=== PATIENT | male | born 1925 | race Caucasian/White ===

== ENCOUNTER 2017-01-13 07:30 | Day surgery (SDC) | payer MEDICARE ==
[~2017-01-13] VITALS: Ht 177.8 cm; Wt 60.5 kg
[~2017-01-13 07:30] MED LIST: BACT800T5 PO; CLIN1CAP5 PO; TRAM50 PO; [UNRECOGNIZED DRUG - REMARK] PO
[2017-01-13] MEDS ORDERED: SODIUM CHLOR 0.9% 1000 ML INJ 1,000 ML IV SCH (08:00)
[2017-01-13 08:07] VITALS: BP 152/64; PULSE 56; RESP 18; TEMP 97.1; O2SAT 97
[2017-01-13] MEDS ORDERED: FERR1TAB58 PO (08:17)
[2017-01-13] MEDS ORDERED: OCUVCAP2 PO (08:17)
[2017-01-13] MEDS ORDERED: ASPI1TAB69 PO (08:17)
[2017-01-13] MEDS ORDERED: FURO40TA PO (08:17)
[2017-01-13] MEDS ORDERED: VITA10003 PO (08:17)
[2017-01-13] MEDS ORDERED: OMEP20TA PO (08:17)
[2017-01-13] MEDS ORDERED: BILB500C PO (08:17)
[2017-01-13] MEDS ORDERED: ZINC50TA PO (08:17)
[2017-01-13] MEDS ORDERED: POTA10SO12 PO (08:17)
[2017-01-13] MEDS ORDERED: SIMV40TA PO (08:17)
[2017-01-13] MEDS ORDERED: IOHEXOL 350 MG/ML 100 ML BTL (for Cath Lab) OTHER ONE (08:37)
[2017-01-13] MEDS ORDERED: HEPARIN-NS/PF INJ 500 ML ONE (08:45)
[2017-01-13] MEDS ORDERED: MIDAZOLAM HCL 2 MG/2 ML VIAL ONE ×2 (08:53→09:12)
[2017-01-13] MEDS ORDERED: SODIUM CHLOR 0.9% 250 ML INJ 250 ML IV PRN (09:30)
[2017-01-13] MEDS ORDERED: ATROPINE SULFATE 1 MG/ML VIAL IV PRN (09:30)
[2017-01-13] MEDS ORDERED: MISC INFORMATION XX ONE (09:30)
[2017-01-13] MEDS ORDERED: BACITRACIN OINT 0.9 GM PKT TOP ONE (09:30)
[2017-01-13] MEDS ORDERED: LIDOCAINE HCL 1% 50 ML VIAL INFIL PRN (09:30)
[2017-01-13] MEDS ORDERED: METOCLOPRAMIDE HCL 10 MG/2 ML VIAL IV PRN (09:30)
[2017-01-13] MEDS ORDERED: ONDANSETRON HCL 4 MG/2 ML VIAL IV PRN (09:30)
[2017-01-13] MEDS ORDERED: LORazepam 2 MG/ML VIAL IV PRN (09:30)
--- NOTE | 2017-01-13 11:02 | MA ---
cc: STEWART BENJAMIN MD DATE: 01/13/2017 A 6 sheath was inserted percutaneously into the right femoral artery. Coronary angiography was done with Maria R preformed catheters and ascending aortogram was done with pigtail catheter. RESULTS Aortic pressure was 110/45. CORONARY ARTERIOGRAPHY Left main coronary was normal but very short. Left anterior descending artery demonstrates some mild luminal irregularities with stenosis of approximately 30% in its proximal portion. No other significant stenoses were seen. Left circumflex artery arose from left main and a mild stenosis of approximately 30-35% was present in its midportion. No other significant lesions were seen. Right coronary was anatomically dominant, mild luminal irregularities were noted but no significant stenoses were noted. ASCENDING AORTOGRAM Ascending aortogram demonstrated normal size aorta, +1 aortic insufficiency was seen. Marked calcification of the aortic valve was present as well as mitral annular calcification. CONCLUSION The patient demonstrates no significant coronary disease. The patient will continue his workup for possible TAVR. MD SARIAH NyW/TLL /9:39 AM /10:40 AM
--- NOTE | 2017-01-13 12:22 | EKG ---
Date Performed: 01/13/2017 Time Performed: 08:18:06 PTAGE: 89 years EKG: --- Warning: Data quality may affect interpretation --- Sinus bradycardia with sinus arrhyt hmia. Prolonged QT interval Lateral ST-T changes are nonspecific Borderline ECG NO PREVIOUS TRACING DOCTOR: Nishant Gibbs Interpretating Date/Time 01/13/2017 12:20:27
== END 2017-01-13 14:18 | disposition home or self-care (01) ==
LOC: HCAT 07:30 → HDIC 07:31 → HCAT 14:18
PROVIDERS: ATTEND Internal Medicine Cardiovascular Disease
DX: I35.0 Nonrheumatic aortic (valve) stenosis (principal); I70.0 Atherosclerosis of aorta; I50.9 Heart failure, unspecified; E78.5 Hyperlipidemia, unspecified
CPT/HCPCS: 93005; 93454; 93567; C1769; C1893; J1644; J2250; J3010; Q9967

== ENCOUNTER 2017-03-01 09:54 | Emergency (ER) | payer MEDICARE ==
[~2017-03-01] VITALS: Ht 167.6 cm; Wt 59.0 kg
[~2017-03-01 09:54] MED LIST changes: +ASPI1TAB69 PO; -BACT800T5 PO; +BILB500C PO; -CLIN1CAP5 PO; +FERR1TAB58 PO; +FURO40TA PO; +OCUVCAP2 PO; +OMEP20TA PO; +POTA10SO12 PO; +SIMV40TA PO; -TRAM50 PO; +VITA10003 PO; +ZINC50TA PO; -[UNRECOGNIZED DRUG - REMARK] PO
[2017-03-01 09:56] VITALS: BP 163/72; PULSE 64; RESP 17; TEMP 98.7; O2SAT 98
[2017-03-01] MEDS ORDERED: CELL1DRO EACH EYE (10:17)
[2017-03-01] MEDS ORDERED: PLAV75TA29 PO (10:17)
[2017-03-01] MEDS ORDERED: cholestero PO (10:17)
[2017-03-01] MEDS ORDERED: ASPI-110 PO (10:17)
[2017-03-01] MEDS ORDERED: PRIL20TA2 PO (10:17)
[2017-03-01] MEDS ORDERED: LORazepam 1 MG TAB PO ONE (11:00)
--- NOTE | 2017-03-01 11:46 | RADHPO ---
EXAM DATE/TIME: 03/01/2017 11:22 [facility] COMPARISON: No previous studies available for comparison. INDICATIONS : Fell and hit forehead yesterday. RADIATION DOSE: 62.38 CTDIvol (mGy) MEDICAL HISTORY : None SURGICAL HISTORY : Appendectomy. Cholecystectomy. ENCOUNTER: Initial ACUITY: 2 days PAIN SCALE: 0/10 LOCATION: cranial TECHNIQUE: Multiple contiguous axial images were obtained of the head. Using automated exposure control and adj ustment of the mA and/or kV according to patient size, radiation dose was kept as low as reasonably a chievable to obtain optimal diagnostic quality images. FINDINGS: CEREBRUM: There is mild generalized atrophy. Ventricles are normal in size. There is periventricular white gurpreet er low attenuation. No evidence of midline shift, mass lesion, hemorrhage or acute infarction. No e xtra-axial fluid collections are seen. POSTERIOR FOSSA: The cerebellum and brainstem demonstrate no acute finding. The 4th ventricle is midline. The cerebe llopontine angle is unremarkable. EXTRACRANIAL: Visualized sinuses are clear. SKULL: The calvaria is intact. No evidence of skull fracture. CONCLUSION: 1. No acute intracranial abnormality is identified. 2. Chronic and age-appropriate related changes include generalized atrophy and periventricular white matter change characteristic of chronic microvascular ischemia. Alfredo Christian MD on March 01, 2017 at 11:42 Board Certified Radiologist. This report was verified electronically.
--- NOTE | 2017-03-01 11:55 | PD ---
HPI Chief Complaint: Head Injury Time Seen by Provider: 10:17 Travel History International Travel<30 days: No Contact w/Intl Traveler<30days: No Traveled to known affect area: No History of Present Illness HPI 89yo M with PMH of aortic valve replacement on plavix and aspirin presents to the ED with c/o frontal headache that has resolved s/p fall yesterday. Pt was in a recliner and his daughter went to the back of chair to plug it in but pt did not want to wait so tried to get off the chair. However, he twisted his legs while trying to avoid his puppies on the floor and hit his forehead. Denies any LOC, dizziness, vision changes, chest pain, sob, n/v, abdominal pain , focal weakness or numbness. Has small abrasion on mid forehead. Up to date on tetanus. Headache had resolved on its own. PFSH Past Medical History Heart Rhythm Problems: No Cancer: No Cardiac Catheterization: No Cardiovascular Problems: Yes (aortic valve stenosis mild case) High Cholesterol: Yes Congestive Heart Failure: No Diabetes: No Diminished Hearing: Yes (R HEARING AID) GERD: Yes Glaucoma: No Hepatitis: No Hiatal Hernia: No Hypertension: No Kidney Stones: Yes Medical other: Yes (MACULAR DEGENERATION LEFT EYE) Respiratory: No Thyroid Disease: No Influenza Vaccination: Yes ?: Not Past Surgical History Abdominal Surgery: Yes (appendectomy, CHOLECYSTECTOMY ) Appendectomy: Yes Cholecystectomy: Yes Coronary Artery Bypass Graft: No Eye Surgery: Yes (LEFT EYE CATARACT EXTRACT.) Genitourinary Surgery: Yes (BASKET RETRIEVAL CALCULI) Oral Surgery: Yes (T & A) Pacemaker: No Tonsillectomy: Yes (T&A) Valve Replacement: Yes Other Surgery: Yes Social History Alcohol Use: Yes (2 beers daily) Tobacco Use: No Substance Use: No Allergies-Medications (Allergen,Severity, Reaction): Coded Allergies: Penicillin (Verified Allergy, Severe, unknown, 03/01/17) Tylenol (Verified Allergy, Severe, 03/01/17) Codeine (Verified Allergy, Intermediate, 03/01/17) Hydrocodone (Verified Allergy, Intermediate, 03/01/17) Uncoded Allergies: tape (Adverse Reaction, Intermediate, 01/13/17) Reported Meds & Prescriptions Reported Meds & Active Scripts Active Reported Refresh Celluvisc Unit-Dose Opth Drops (Carboxymethylcellulose Sodium Opth Drops ) 1% Drops 1 Drop EACH EYE DAILY Aspirin 81 (Aspirin) 81 Mg Tabdr 81 Mg PO DAILY Prilosec (Omeprazole Magnesium) 20 Mg Tab 1 Tab PO DAILY [cholestero] 1 Tab PO DAILY Plavix (Clopidogrel Bisulfate) 75 Mg Tab 75 Mg PO DAILY Ocuvite Adult 50+ (Multiple Vitamins W/ Minerals) 1 Cap 1 Cap PO DAILY Bilberry Extract 500 Mg Cap 500 Mg PO Review of Systems Except as stated in HPI: all other systems reviewed are Neg Physical Exam Narrative GENERAL: 89yo M not in distress. SKIN: Focused skin assessment warm/dry. HEAD: Small abrasion mid forehead. EYES: Pupils equal and round. EOMI. No scleral icterus. No injection or drainage. ENT: No nasal bleeding or discharge. Mucous membranes pink and moist. NECK: Trachea midline. No JVD. CARDIOVASCULAR: Regular rate and rhythm. No murmur appreciated. RESPIRATORY: No accessory muscle use. Clear to auscultation. Breath sounds equal bilaterally. GASTROINTESTINAL: Abdomen soft, non-tender, nondistended. . MUSCULOSKELETAL: No obvious deformities. No clubbing. No cyanosis. No edema. NEUROLOGICAL: Awake and alert. No obvious cranial nerve deficits. Motor grossly within normal limits. Normal speech. PSYCHIATRIC: Appropriate mood and affect; insight and judgment normal. Data Data Last Documented VS Vital Signs Date Time Temp Pulse Resp B/P Pulse Ox O2 Delivery O2 Flow Rate FiO2 03/01/17 09:56 98.7 64 17 163/72 98 Orders [place] (03/01/17 ) Ct Brain W/O Iv Contrast(Rout) (03/01/17 ) Electrocardiogram (03/01/17 ) Lorazepam (Ativan) (03/01/17 11:00) [facility] Medical Decision Making Medical Screen Exam Complete: Yes Emergency Medical Condition: Yes Interpretation(s) EKG: Sinus bradycardia at 57bpm. Normal axis. No ST segment elevation or depression. QTc 433ms. Differential Diagnosis ICH vs. contusion Narrative Course 89yo M with mid frontal headache that has resolved s/p mechanical fall yesterday. Will CT brain since pt is 89yo. Pt was claustrophobic so ativan 1mg PO given. CT brain showed no acute abnormalities. No focal neurologic deficits. Return precautions given. Diagnosis Primary Impression: Fall Qualified Code: W19.XXXA - Fall, initial encounter Patient Instructions: General Instructions Departure Forms: Tests/Procedures Additional Instructions: Please follow up with your PMD in 3-7 days. Return to the ED if symptoms worsen. Med/Other Pt SpecificInfo: No Change to Meds Disposition: 01 DISCHARGE HOME Condition: Stable Fay Asencio DO March 01, 2017 11:55
[2017-03-01 12:09] VITALS: BP 145/67; PULSE 62; RESP 20; O2SAT 98
--- NOTE | 2017-03-02 08:35 | EKG ---
Date Performed: 03/01/2017 Time Performed: 10:32:42 PTAGE: 89 years EKG: Sinus bradycardia Lateral T wave changes are nonspecific Borderline ECG PREVIOUS TRACING : 01/13/2017 08.18 No significant change from previous tracing noted. DOCTOR: Zak Whatley Interpretating Date/Time 03/02/2017 08:33:08
== END 2017-03-01 12:16 | disposition home or self-care (01) ==
LOC: PHED 09:54
DX: R51 Headache (principal); R00.1 Bradycardia, unspecified; E78.00 Pure hypercholesterolemia, unspecified; K21.9 Gastro-esophageal reflux disease without esophagitis; Z79.02 Long term (current) use of antithrombotics/antiplatelets; Z79.82 Long term (current) use of aspirin; W19.XXXA Unspecified fall, initial encounter
CPT/HCPCS: 70450; 93005; 99284; L0150

== ENCOUNTER 2017-03-22 18:08 | Emergency (ER) | payer MEDICARE ==
[~2017-03-22] VITALS: Ht 175.3 cm; Wt 55.0 kg
[~2017-03-22 18:08] MED LIST changes: +ASPI-110 PO; -ASPI1TAB69 PO; +CELL1DRO EACH EYE; -FERR1TAB58 PO; -FURO40TA PO; -OMEP20TA PO; +PLAV75TA29 PO; -POTA10SO12 PO; +PRIL20TA2 PO; -SIMV40TA PO; -VITA10003 PO; -ZINC50TA PO; +cholestero PO
[2017-03-22 18:23] VITALS: BP 164/90; PULSE 73; RESP 18; TEMP 98.3; O2SAT 98
--- NOTE | 2017-03-22 18:38 | PD ---
HPI Chief Complaint: Altered Mental Status Time Seen by Provider: 18:15 Travel History International Travel<30 days: No Contact w/Intl Traveler<30days: No Traveled to known affect area: No History of Present Illness HPI 89yo M with PMH of aortic valve replacement in 02/08/2017 presents to the ED with right groin pain. States it has been occurring for weeks and worst with movement. Pain is intermittent. Denies any fever, chest pain, sob, n/v, testicular pain, penile discharge, dysuria, hematuria. PFSH Past Medical History Heart Rhythm Problems: No Cancer: No Cardiac Catheterization: No Cardiovascular Problems: Yes (aortic valve stenosis mild case) High Cholesterol: Yes Congestive Heart Failure: No Diabetes: No Diminished Hearing: Yes (R HEARING AID) GERD: Yes Glaucoma: No Hepatitis: No Hiatal Hernia: No Hypertension: No Kidney Stones: Yes Respiratory: No Thyroid Disease: No ?: Not Past Surgical History Abdominal Surgery: Yes (appendectomy, CHOLECYSTECTOMY ) Appendectomy: Yes Cholecystectomy: Yes Coronary Artery Bypass Graft: No Eye Surgery: Yes (LEFT EYE CATARACT EXTRACT.) Genitourinary Surgery: Yes (BASKET RETRIEVAL CALCULI) Oral Surgery: Yes (T & A) Pacemaker: No Tonsillectomy: Yes (T&A) Valve Replacement: Yes Other Surgery: Yes Social History Alcohol Use: Yes (2 beers daily) Tobacco Use: No Substance Use: No Allergies-Medications (Allergen,Severity, Reaction): Coded Allergies: Penicillin (Verified Allergy, Severe, unknown, 03/22/17) Tylenol (Verified Allergy, Severe, 03/22/17) Codeine (Verified Allergy, Intermediate, 03/22/17) Hydrocodone (Verified Allergy, Intermediate, 03/22/17) Uncoded Allergies: tape (Adverse Reaction, Intermediate, 01/13/17) Reported Meds & Prescriptions Reported Meds & Active Scripts Active Reported Refresh Celluvisc Unit-Dose Opth Drops (Carboxymethylcellulose Sodium Opth Drops ) 1% Drops 1 Drop EACH EYE DAILY Aspirin 81 (Aspirin) 81 Mg Tabdr 81 Mg PO DAILY Prilosec (Omeprazole Magnesium) 20 Mg Tab 1 Tab PO DAILY [cholestero] 1 Tab PO DAILY Plavix (Clopidogrel Bisulfate) 75 Mg Tab 75 Mg PO DAILY Ocuvite Adult 50+ (Multiple Vitamins W/ Minerals) 1 Cap 1 Cap PO DAILY Bilberry Extract 500 Mg Cap 500 Mg PO Review of Systems Except as stated in HPI: all other systems reviewed are Neg Physical Exam Narrative GENERAL: 89yo M not in distress. SKIN: Focused skin assessment warm/dry. HEAD: Atraumatic. Normocephalic. EYES: Pupils equal and round. No scleral icterus. No injection or drainage. ENT: No nasal bleeding or discharge. Mucous membranes pink and moist. NECK: Trachea midline. No JVD. CARDIOVASCULAR: Regular rate and rhythm. No murmur appreciated. RESPIRATORY: No accessory muscle use. Clear to auscultation. Breath sounds equal bilaterally. GASTROINTESTINAL: Abdomen soft, +TTP suprapubic region. Right groin. No edema or erythema. Femoral pulse intact. No rebound tenderness or guarding. : No testicular ttp. No hernia palpated. MUSCULOSKELETAL: No obvious deformities. No clubbing. No cyanosis. No edema. NEUROLOGICAL: Awake and alert. No obvious cranial nerve deficits. Motor grossly within normal limits. Normal speech. PSYCHIATRIC: Appropriate mood and affect; insight and judgment normal. Data Data Last Documented VS Vital Signs Date Time Temp Pulse Resp B/P Pulse Ox O2 Delivery O2 Flow Rate FiO2 03/22/17 18:43 18 98 Room Air 03/22/17 18:40 62 03/22/17 18:23 98.3 164/90 Orders Complete Blood Count With Diff (03/22/17 18:38) Comprehensive Metabolic Panel (03/22/17 18:38) Lipase (03/22/17 18:38) Prothrombin Time / Inr (Pt) (03/22/17 18:38) Act Partial Throm Time (Ptt) (03/22/17 18:38) Urinalysis - C+S If Indicated (03/22/17 18:38) Ct Abd/Pel W Iv Contrast(Rout) (03/22/17 18:38) Iv Access Insert/Monitor (03/22/17 18:38) Ecg Monitoring (03/22/17 18:38) Oximetry (03/22/17 18:38) Sodium Chloride 0.9% Flush (Ns Flush) (03/22/17 18:45) Sodium Chlorid 0.9% 500 Ml Inj (Ns 500 M (03/22/17 19:00) Iohexol 350 Inj (Omnipaque 350 Inj) (03/22/17 19:54) Electrocardiogram (03/22/17 18:28) Labs Laboratory Tests Test 03/22/17 03/22/17 18:52 19:40 White Blood Count 5.5 TH/MM3 Red Blood Count 3.17 MIL/MM3 Hemoglobin 10.0 GM/DL Hematocrit 29.1 % Mean Corpuscular Volume 91.8 FL Mean Corpuscular Hemoglobin 31.6 PG Mean Corpuscular Hemoglobin 34.5 % Concent Red Cell Distribution Width 14.2 % Platelet Count 162 TH/MM3 Mean Platelet Volume 7.9 FL Neutrophils (%) (Auto) 75.9 % Lymphocytes (%) (Auto) 12.4 % Monocytes (%) (Auto) 10.3 % Eosinophils (%) (Auto) 0.9 % Basophils (%) (Auto) 0.5 % Neutrophils # (Auto) 4.2 TH/MM3 Lymphocytes # (Auto) 0.7 TH/MM3 Monocytes # (Auto) 0.6 TH/MM3 Eosinophils # (Auto) 0.1 TH/MM3 Basophils # (Auto) 0.0 TH/MM3 CBC Comment DIFF FINAL Differential Comment Prothrombin Time 11.3 SEC Prothromb Time International 1.0 RATIO Ratio Activated Partial 25.0 SEC Thromboplast Time Sodium Level 139 MEQ/L Potassium Level 4.1 MEQ/L Chloride Level 103 MEQ/L Carbon Dioxide Level 27.5 MEQ/L Anion Gap 9 MEQ/L Blood Urea Nitrogen 21 MG/DL Creatinine 1.10 MG/DL Estimat Glomerular Filtration 63 ML/MIN Rate Random Glucose 88 MG/DL Calcium Level 9.4 MG/DL Total Bilirubin 0.8 MG/DL Aspartate Amino Transf 15 U/L (AST/SGOT) Alanine Aminotransferase 13 U/L (ALT/SGPT) Alkaline Phosphatase 77 U/L Total Protein 6.2 GM/DL Albumin 3.4 GM/DL Lipase 332 U/L Urine Color YELLOW Urine Turbidity CLEAR Urine pH 7.5 Urine Specific [place] 1.013 Urine Protein TRACE mg/dL Urine Glucose (UA) NEG mg/dL Urine Ketones NEG mg/dL Urine Occult Blood NEG Urine Nitrite NEG Urine Bilirubin NEG Urine Urobilinogen 2.0 MG/DL Urine Leukocyte Esterase NEG Urine RBC 3 /hpf Urine WBC 1 /hpf Microscopic Urinalysis Comment CULT NOT INDICATED MDM Medical Decision Making Medical Screen Exam Complete: Yes Emergency Medical Condition: Yes Differential Diagnosis Muscle sprain vs. hematoma vs. abscess Narrative Course 89yo M with right groin pain intermittently since his aortic valve replacement over 1 month ago. Pt has also been more confused as per since 03/01/17 and has been work up as an outpatient with [address] as well as neurology follow up and EEG as outpatient planned. No focal neurologic deficits on exam. Sign out to next team to follow labs and CTa/p. Diagnosis Primary Impression: Right groin pain Fay Asencio DO Mar 22, 2017 18:38
[2017-03-22 18:43] VITALS: RESP 18; O2SAT 98
[2017-03-22] MEDS ORDERED: SODIUM CHLORIDE 0.9% FLUSH 10 ML FLUSH IV FLUSH PRN (18:45)
[2017-03-22] MEDS ORDERED: SODIUM CHLORID 0.9% 500 ML INJ 500 ML IV ONE (19:00)
[2017-03-22 19:13] LABS: AUTOMATED NEUTROPHIL # 4.2 TH/MM3 (1.8-7.7); BASOPHIL % 0.5 % (0.0-2.0); EOSINOPHIL # 0.1 TH/MM3 (0-0.4); EOSINOPHIL % 0.9 % (0.0-4.0); HEMATOCRIT 29.1 % (39.0-51.0); HEMO FLAGS DIFF FINAL; LYMPH % 12.4 % (9.0-44.0); LYMPHOCYTE # 0.7 TH/MM3 (1.0-4.8); MEAN CELL VOLUME 91.8 FL (80.0-100.0); MEAN CORPUSCULAR HEMOGLOBIN 31.6 PG (27.0-34.0); MEAN CORPUSCULAR HGB CONC 34.5 % (32.0-36.0); MONO % 10.3 % (0.0-8.0); NEUT % 75.9 % (16.0-70.0); PLATELET COUNT 162 TH/MM3 (150-450); RED BLOOD COUNT 3.17 MIL/MM3 (4.50-5.90); RED CELL DISTRIBUTION WIDTH 14.2 % (11.6-17.2); WHITE BLOOD COUNT 5.5 TH/MM3 (4.0-11.0)
[2017-03-22 19:18] LABS: PROTHROMBIN TIME - PATIENT 11.3 SEC (9.8-11.6)
[2017-03-22 19:28] LABS: ANION GAP 9 MEQ/L (5-15); AST (GOT) 15 U/L (15-37); BICARBONATE 27.5 MEQ/L (21.0-32.0); BLOOD UREA NITROGEN 21 MG/DL (7-18); CHLORIDE 103 MEQ/L (98-107); GLOMERULAR FILTRATION RATE 63 ML/MIN (>89); POTASSIUM 4.1 MEQ/L (3.5-5.1); SODIUM (NA) 139 MEQ/L (136-145)
--- NOTE | 2017-03-22 19:29 | PD ---
Data Data Last Documented VS Vital Signs Date Time Temp Pulse Resp B/P Pulse Ox O2 Delivery O2 Flow Rate FiO2 03/22/17 18:43 18 98 Room Air 03/22/17 18:40 62 03/22/17 18:23 98.3 164/90 Orders Complete Blood Count With Diff (03/22/17 18:38) Comprehensive Metabolic Panel (03/22/17 18:38) Lipase (03/22/17 18:38) Prothrombin Time / Inr (Pt) (03/22/17 18:38) Act Partial Throm Time (Ptt) (03/22/17 18:38) Urinalysis - C+S If Indicated (03/22/17 18:38) Ct Abd/Pel W Iv Contrast(Rout) (03/22/17 18:38) Iv Access Insert/Monitor (03/22/17 18:38) Ecg Monitoring (03/22/17 18:38) Oximetry (03/22/17 18:38) Sodium Chloride 0.9% Flush (Ns Flush) (03/22/17 18:45) Sodium Chlorid 0.9% 500 Ml Inj (Ns 500 M (03/22/17 19:00) Iohexol 350 Inj (Omnipaque 350 Inj) (03/22/17 19:54) Labs Laboratory Tests Test 03/22/17 03/22/17 18:52 19:40 White Blood Count 5.5 TH/MM3 Red Blood Count 3.17 MIL/MM3 Hemoglobin 10.0 GM/DL Hematocrit 29.1 % Mean Corpuscular Volume 91.8 FL Mean Corpuscular Hemoglobin 31.6 PG Mean Corpuscular Hemoglobin 34.5 % Concent Red Cell Distribution Width 14.2 % Platelet Count 162 TH/MM3 Mean Platelet Volume 7.9 FL Neutrophils (%) (Auto) 75.9 % Lymphocytes (%) (Auto) 12.4 % Monocytes (%) (Auto) 10.3 % Eosinophils (%) (Auto) 0.9 % Basophils (%) (Auto) 0.5 % Neutrophils # (Auto) 4.2 TH/MM3 Lymphocytes # (Auto) 0.7 TH/MM3 Monocytes # (Auto) 0.6 TH/MM3 Eosinophils # (Auto) 0.1 TH/MM3 Basophils # (Auto) 0.0 TH/MM3 CBC Comment DIFF FINAL Differential Comment Prothrombin Time 11.3 SEC Prothromb Time International 1.0 RATIO Ratio Activated Partial 25.0 SEC Thromboplast Time Sodium Level 139 MEQ/L Potassium Level 4.1 MEQ/L Chloride Level 103 MEQ/L Carbon Dioxide Level 27.5 MEQ/L Anion Gap 9 MEQ/L Blood Urea Nitrogen 21 MG/DL Creatinine 1.10 MG/DL Estimat Glomerular Filtration 63 ML/MIN Rate Random Glucose 88 MG/DL Calcium Level 9.4 MG/DL Total Bilirubin 0.8 MG/DL Aspartate Amino Transf 15 U/L (AST/SGOT) Alanine Aminotransferase 13 U/L (ALT/SGPT) Alkaline Phosphatase 77 U/L Total Protein 6.2 GM/DL Albumin 3.4 GM/DL Lipase 332 U/L Urine Color YELLOW Urine Turbidity CLEAR Urine pH 7.5 Urine Specific [place] 1.013 Urine Protein TRACE mg/dL Urine Glucose (UA) NEG mg/dL Urine Ketones NEG mg/dL Urine Occult Blood NEG Urine Nitrite NEG Urine Bilirubin NEG Urine Urobilinogen 2.0 MG/DL Urine Leukocyte Esterase NEG Urine RBC 3 /hpf Urine WBC 1 /hpf Microscopic Urinalysis Comment CULT NOT INDICATED MDM Medical Record Reviewed: Yes Supervised Visit with GUERLINE: No Interpretation(s) Last Impressions Abdomen/Pelvis CT 03/22/17 1838 Signed Impressions: Service Date/Time: Wednesday, March 22, 2017 19:52 - CONCLUSION: 1. No acute finding is identified in the abdomen or pelvis to explain the clinical symptoms. 2. There is a small hiatal hernia along with a herniation of fat into the posterior mediastinum and there is a small amount of fluid in the herniated fat. 3. Nonacute findings include bilateral renal cysts, severe atherosclerotic disease, and sigmoid diverticulosis. Alfredo Christian MD Narrative Course During the course of the patients emergency department visit, the patients history, examination, and differential diagnosis were reviewed with the patient. The patient had IV access obtained and blood work sent for analysis. The patient had an EKG done on arrival. The patient's case was checked out to me by Dr. Asencio at the conclusion of her shift. Please see her complete history and physical. The patient was initially provided normal saline a 500 mL bolus 1. The patient was given Tylenol for pain. The patients laboratory studies were reviewed and remarkable for a white count of 5.5, hemoglobin 10, platelets 162, neutrophils 75.9, monocytes 10.3, CMP is remarkable for a BUN of 21, GFR 63, total protein 6.2, lipase 332, PT 11.3, INR 1.0, PTT 25, urinalysis is within normal limits. Radiology studies were reviewed and remarkable for no acute findings identified in the abdomen and pelvis to explain the patient's clinical symptoms area there is a small hiatal hernia along with herniation of fat anterior mediastinum and a small amount of fluid in the herniated fat, nonacute findings include bilateral renal cysts, severe atherosclerotic disease and sigmoid diverticulosis. The patient is resting comfortably and feels better, is alert and in no distress. The patients results and examination findings were discussed with the patient and the patient's family. The repeat examination is unremarkable and benign. The history, exam, diagnostic testing, and current condition do not suggest any significant pathology to warrant further testing, continued ED treatment, admission, or surgical evaluation at this point. The vital signs have been stable. The patient does not have uncontrollable pain, intractable vomiting, or other significant symptoms. The patient's condition is stable and appropriate for discharge. The patient will pursue further outpatient evaluation with a primary care physician or other designated or consulting physician as indicated in the discharge instructions. The patient expressed understanding and was agreeable with this plan. Diagnosis Primary Impression: Right groin pain Referrals: Primary Care Physician Patient Instructions: General Instructions, Groin Pain (ED) Additional Instruction: Take Tylenol as needed for discomfort as written on the package. Disposition: 01 DISCHARGE HOME Condition: Stable Jackelyn Gan MD Mar 22, 2017 19:29
[2017-03-22 19:32] LABS: ALKALINE PHOSPHATASE 77 U/L (45-117); ALT (GPT) 13 U/L (12-78); TOTAL BILIRUBIN ADULT 0.8 MG/DL (0.2-1.0)
[2017-03-22] MEDS ORDERED: IOHEXOL 350 MG/ML 10 ML VIAL (for RAD DIAG) IV ONE (19:54)
[2017-03-22 20:06] LABS: BLOOD, URINE NEG (NEG); COMMENT (UR) CULT NOT INDICATED; CULTURE IF INDICATED CULT NOT INDICATED; GLUCOSE,URINE NEG (NEG); KETONE, URINE NEG (NEG); NITRITE,URINE NEG (NEG); PH, URINE 7.5 (5.0-8.5); URINE COLOR YELLOW (YELLW/STRAW)
--- NOTE | 2017-03-22 20:13 | RADRPT ---
EXAM DATE/TIME: 03/22/2017 19:52 [facility] COMPARISON: No previous studies available for comparison. INDICATIONS : Bilateral groin pain off past several weeks. IV CONTRAST: 70 cc Omnipaque 350 (iohexol) IV ORAL CONTRAST: No oral contrast ingested. RADIATION DOSE: 8.02 CTDIvol (mGy) MEDICAL HISTORY : Cardiovascular disease. Renal calculi. SURGICAL HISTORY : Cholecystectomy. Aortic valve ENCOUNTER: Initial ACUITY: 2 weeks PAIN SCALE: 5/10 LOCATION: Bilateral groin TECHNIQUE: Volumetric scanning of the abdomen and pelvis was performed. Using automated exposure control and ad justment of the mA and/or kV according to patient size, radiation dose was kept as low as reasonably achievable to obtain optimal diagnostic quality images. FINDINGS: LOWER LUNGS: The visualized lower lungs are clear. There has been prior aortic valve repair with metallic device p resent. There is herniation of fat in the right posterior mediastinum with a small amount of fluid pr esent. LIVER: Homogeneous density without lesion. There is no dilation of the biliary tree. There has been prior cholecystectomy clips in the gallbladder fossa. SPLEEN: Normal size without lesion. PANCREAS: Within normal limits. KIDNEYS: Normal in size and shape. There is no mass, stone or hydronephrosis. Bilateral renal cysts are prese nt measuring up to 3.3 cm at the right upper pole. ADRENAL GLANDS: There is a 7 mm left adrenal gland nodule that is too small to characterize. Right adrenal gland is n ormal. VASCULAR: There is no aortic aneurysm. There is severe atherosclerotic disease. BOWEL/MESENTERY: The stomach, small bowel, and colon demonstrate no acute abnormality. There is no free intraperitone al air or fluid. There is sigmoid diverticulosis. Small hiatal hernia is present. ABDOMINAL WALL: Within normal limits. RETROPERITONEUM: There is no lymphadenopathy. BLADDER: No wall thickening or mass. REPRODUCTIVE: Prostate gland is mildly enlarged calcification. INGUINAL: There is no lymphadenopathy or hernia. MUSCULOSKELETAL: There are degenerative changes of the lumbar spine. CONCLUSION: 1. No acute finding is identified in the abdomen or pelvis to explain the clinical symptoms. 2. There is a small hiatal hernia along with a herniation of fat into the posterior mediastinum and t here is a small amount of fluid in the herniated fat. 3. Nonacute findings include bilateral renal cysts, severe atherosclerotic disease, and sigmoid diver ticulosis. Alfredo Christian MD on March 22, 2017 at 20:05 Board Certified Radiologist. This report was verified electronically.
--- NOTE | 2017-03-23 16:45 | EKG ---
Date Performed: 03/22/2017 Time Performed: 18:28:32 PTAGE: 89 years EKG: Sinus rhythm NONSPECIFIC T-WAVE ABNORMALITY Since previous tracing, no significant change noted BORDERLINE ECG PREVIOUS TRACING : 03/01/2017 10.32.42 DOCTOR: Deanna Arechiga Interpretating Date/Time 03/23/2017 17:20:13
== END 2017-03-22 21:05 | disposition home or self-care (01) ==
LOC: NEPC 18:08
DX: R10.31 Right lower quadrant pain (principal); N28.1 Cyst of kidney, acquired; E78.00 Pure hypercholesterolemia, unspecified; K44.9 Diaphragmatic hernia without obstruction or gangrene; K57.30 Diverticulosis of large intestine without perforation or abscess without bleeding; Z95.2 Presence of prosthetic heart valve; Z79.82 Long term (current) use of aspirin; Z87.442 Personal history of urinary calculi; H91.91 Unspecified hearing loss, right ear
CPT/HCPCS: 74177; 80053; 81001; 83690; 85025; 85610; 85730; 93005; 96360; 99285; J7040; Q9967

== ENCOUNTER → 2017-05-05 | Outpatient (CLI) | payer MEDICARE ==
[~2017-05-05] VITALS: Ht 180.3 cm; Wt 55.7 kg
[~2017-05-05] MED LIST changes: +CHLORHEXIDINE GLUCONATE 2 % 1 PACK (2 CLOTHS) TOPICAL PRN; +INSULIN HUMAN REGULAR 1,000 UNITS/10 ML VIAL SQ PRN; +LACTATED RINGER'S 1000 ML IV PRN; +METOPROLOL TARTRATE 25 MG TAB PO PRN; +POVIDONE IODINE 5% (ANTISEPSIS KIT) 4 APPLICATIONS EACH NARE PRN; +PROPOFOL 200 MG/20 ML AMP IV ONE; +SODIUM CHLORID 0.9% 500 ML IV PRN
[2017-05-05 08:29] VITALS: BP 121/58; PULSE 66; RESP 20; TEMP 98.2; O2SAT 97
[2017-05-05 10:09] VITALS: BP 117/49; PULSE 58; RESP 16; O2SAT 98
--- NOTE | 2017-05-05 10:17 | GIPROC ---
[facility] [address] [facility]. [facility], [id number] EGD PROCEDURE REPORT EXAM DATE: 05/05/2017 PATIENT NAME: Alfredo King MR #: [id number] BIRTHDATE: 1925 ATTENDING: Neva Alex MD ORDER #: [id number] CHARGE COORDINATOR: Nilson Young and Laura Enrique STATUS: outpatient INDICATIONS: The patient is a 89 yr old male here for an EGD due to dysphagia PROCEDURE PERFORMED: EGD w/ biopsy EGD w/ dilation of esophagus via guidewire MEDICATIONS: None and Per Anesthesia. TOPICAL ANESTHETIC: none CONSENT: The patient understands the risks and benefits of the procedure and understands that these risks include, but are not limited to: sedation, allergic reaction, infection, perforation and/or bleeding. Alternative means of evaluation and treatment include, among others: physical exam, x-rays, and/or surgical intervention. The patient elects to proceed with this endoscopic procedure. medical equipment was checked for proper function. Hand hygiene and appropriate measures for infection prevention was taken. After the risks, benefits and alternatives of the procedure were thoroughly explained, Informed consent was verified, confirmed and timeout was successfully executed by the treatment team. The patient was anesthetized with topical anesthesia and the Pentax EG-[id number] endoscope was introduced through the mouth and advanced to the second portion of the duodenum. Retroflexed views revealed a hiatal hernia The gastroscope was then slowly withdrawn and removed. Gastritis antrum -biopsy stricture distal esophagus -biopsy hiatal henia. Dilatation using Savary 15, 17. ADVERSE EVENTS: There were no complications. IMPRESSIONS: 1. Gastritis antrum -biopsy stricture distal esophagus -biopsy hiatal henia 2. Retroflexed views revealed a hiatal hernia RECOMMENDATIONS: 1. Anti-reflux regimen 2. Continue PPI PATIENT CONDITION: stable DISPOSITION: Home REPEAT EXAM: EGD pending biopsy results Neva Alex MD eSigned: Neva Alex MD 05/05/2017 10:17 AM cc: Irving Cornell M.D. PATIENT NAME: Alfredo King MR#: [id number]
== END ==
LOC: HEND 07:49
PROVIDERS: ATTEND Internal Medicine Gastroenterology
DX: K22.2 Esophageal obstruction (principal); K29.50 Unspecified chronic gastritis without bleeding; K44.9 Diaphragmatic hernia without obstruction or gangrene; K20.9 Esophagitis, unspecified; K92.9 Disease of digestive system, unspecified; R13.10 Dysphagia, unspecified
CPT/HCPCS: 00740; 43239; 43248; 88305; 88312; C1769